=== PATIENT | female | born 1940 | race Caucasian/White ===

== ENCOUNTER 2016-11-07 14:00 | Inpatient (IN) ==
[2016-11-07] MEDS ORDERED: chlorproMAZINE 25 MG TABLET PO PRN (14:51)
[2016-11-07] MEDS ORDERED: diphenhydrAMINE CAP 25 MG CAPSULE PO PRN (14:51)
[2016-11-07] MEDS ORDERED: chlorproMAZINE INJ 50 MG in SODIUM CHLORIDE 0.9% 100 ML IV PRN (14:51)
[2016-11-07] MEDS ORDERED: LOPERAMIDE 2 MG CAPSULE PO PRN ×2 (14:51)
[2016-11-07] MEDS ORDERED: MYLANTA/LIDO VISC 2:1 300 ML BOTTLE SWISH/SWAL PRN (14:51)
[2016-11-07] MEDS ORDERED: BENZTROPINE 2 MG/2 ML AMP IV PRN (14:51)
[2016-11-07] MEDS ORDERED: PROMETHAZINE INJ 25 MG in SODIUM CHLORIDE 0.9% 50 ML IV PRN (14:51)
[2016-11-07] MEDS ORDERED: MAGNESIUM HYDROXIDE SUSP 30 ML UDCUP PO PRN (14:51)
[2016-11-07] MEDS ORDERED: LACTULOSE 20 GM/30 ML UDCUP PO PRN (14:51)
[2016-11-07] MEDS ORDERED: ONDANSETRON 4 MG/2 ML VIAL IV PRN (14:51)
[2016-11-07] MEDS ORDERED: ALPRAZolam 0.25 MG TABLET PO PRN (14:51)
[2016-11-07] MEDS ORDERED: MYLANTA/LIDO VISC 2:1 300 ML BOTTLE SWISH/SPIT PRN (14:51)
[2016-11-07] MEDS ORDERED: chlorproMAZINE INJ 25 MG in SODIUM CHLORIDE 0.9% 100 ML IV PRN (14:51)
[2016-11-07] MEDS ORDERED: traMADol 50 MG TABLET PO PRN (14:51)
[2016-11-07] MEDS ORDERED: TEMAZEPAM 7.5 MG CAPSULE PO PRN (14:51)
[2016-11-07] MEDS ORDERED: guaiFENesin 200 MG/10 ML UDCUP PO PRN (14:51)
[2016-11-07] MEDS ORDERED: ALUMINUM/MAGNES/SIMETH MAX STR 30 ML UDCUP PO PRN (14:51)
[2016-11-07] MEDS ORDERED: ACETAMINOPHEN 325 MG TABLET PO PRN (14:51)
[2016-11-07] MEDS: DEXT 5% NACL 0.45% KCL 20 MEQ 20 MEQ/1,000 ML BAG IV SCH (15:59)
--- NOTE | 2016-11-07 17:11 | Oncology History&Physical ---
History of Present Illness Chief complaint: Non-Hodgkins Lymphoma History of present illness: Ms. Velasquez is a 76 year old female with diffuse large B-cell non-Hodgkin lympoma admitted for Rituxan in the morning. She presented to my office on the day of this admission complaining of increasing left flank pain. She has a large bulky area of documented lymphoma in the left lateral abdomen as well as additional areas of lymphomatous involvement. She had a PET scan done October 17, 2016 that demonstrated activity in the left neck as well as in the chest and the right subcarinal area along with extensive adenopathy throughout the abdomen and the portacaval region, pericaval region and para-aortic region. There was also a large intra- abdominal mass on the left side that was biopsied under ultrasound on September 21, 2016. It is established the diagnosis of diffuse large B-cell lymphoma. Because of her frail condition, it was my intention to treat her with Rituxan and bendamustine and I had planned to start on Rituxan 500 mg IV this week after she had a Mediport catheter placed. Mediport catheter was placed last week. I prescribed allopurinol 300 mg daily and plan to continue it for about a month. The patient has gotten that prescription filled and she started on it last week. I already started her on dexamethasone 20 mg p.o. each week. In addition, she received Prevnar 13 on October 25, 2016. She has a remote history of colon cancer in 1996 for which she was treated at [facility] and I have no details of that treatment. ROS Gen.: Positive for fatigue and weight loss. Negative for change in appetite, fever, chills, night sweats. Eyes: No history of chronic disease, infections or visual loss. ENT: Positive for hearing loss, snoring and tinnitus. No history of chronic infections, epistaxis, chronic sore throat Lungs: No history of asthma, emphysema, hemoptysis, chronic pleurisy or long- term or chronic infections Cardiovascular: Positive for varicose veins. No history of angina, coronary artery disease, congestive heart failure, cardiovascular surgery or DVT/VTE GI: Positive for abdominal mass, abdominal pain in the left flank and left lateral abdomen primarily, bloating and hemorrhoids. No history of upper or lower GI bleeding, melena, dysphagia, odynophagia, liver disease, gallbladder disease or pancreatic disease. : No history of kidney stones, chronic kidney infections or hematuria. Endocrine: Positive abnormal sleep patterns, chronic underweight, recent weight loss. Musculoskeletal: No history of chronic bone or joint pain or focal muscle atrophy or bone or joint deformity. Neurologic: Positive for memory impairment with moderate short-term memory loss. No history of seizures, convulsions or paralysis. Psychiatric: Positive for memory loss but otherwise no history of chronic psychiatric illness or psychiatric medications. Lymphatic: In spite of having extensive adenopathy within the chest and abdomen , there is no history of significant or long-term lymphadenopathy Hematologic: No history of anemia, bleeding disorders or blood dyscrasias or long-term elevation or depression white cell count or petechiae. Skin: No history of chronic skin infections or rashes or significant skin lesions. Family history is positive for diabetes mellitus but negative for lymphoma Social history: She is . Never smoked. Past medical history she has no known allergies. She has had bilateral cataract surgery, hysterectomy and tonsillectomy. Her only other illness was the colon cancer for which she was treated at [facility]. Physical examination: The patient is underweight and thin but in no acute distress. Eyes: Normal lids and conjunctivae. ENT: Her oral mucosa and pharynx are normal. She has no tonsillar masses. The palate and uvula are normal. Neck: Her voice is clear and her trachea is midline. She has no neck masses. The thyroid is normal. Nodes: There is no cervical, supraclavicular or axillary adenopathy. Breasts: No abnormalities by inspection or palpation. Respiratory: Breath sounds are normal without rubs, rales or rhonchi. There is no chest wall tenderness and no chest wall deformities. Cardiovascular: Her heart rhythm is regular without murmur, gallop or rub. There is no jugular venous distention, clubbing, cyanosis or edema. Abdomen: She has a large mass palpable in the left side of the abdomen including apparent splenomegaly but there is a separate mass in the left flank area anteriorly. This is tender. Bowel sounds are normal. I cannot palpate her liver. Musculoskeletal: Gait and station are normal. There is no focal muscle atrophy or bone or joint deformity. Neurologic: She has moderate short-term memory impairment. Cranial nerves II through XII are intact. The no focal neurologic deficits. Psychiatric: She has memory loss with short-term memory impairment primarily. She appears to be relatively oriented but not completely so. The patient's complete blood count on November 07, 2016 includes a hemoglobin of 14.5 with a platelet count of 198,000 and an absolute neutrophil count of 4100. Her comprehensive metabolic profile is entirely normal and her LDH is normal at 152. 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 Unfortunately, bendamustine is not readily available and has to be ordered. I may consider treating the patient with 1 dose of Cytoxan or possibly having her return for bendamustine. I am concerned about tumor lysis syndrome and I will place the patient on allopurinol. It may be appropriate to give Rituxan initially along with steroids and without additional aggressive chemotherapy. Home Medications Medication Instructions Recorded Confirmed Type Calcium (Carb)/Vit D 600-400 1 tablet PO DAILY 04/04/16 11/07/16 History [Caltrate 600 + D] Vitamin E 400 unit PO DAILY 04/04/16 11/07/16 History Multivitamin [One Daily] 1 tablet PO DAILY 09/21/16 11/07/16 History Polyethylene Glycol Powder 17 gram PO DAILY 09/21/16 11/07/16 History [Miralax] Allopurinol [Zyloprim] 300 mg PO DAILY 11/02/16 11/07/16 History Dexamethasone [Dexamethasone Tab] 20 mg PO Q7DAY 11/02/16 11/07/16 History Allergies Allergy/AdvReac Type Severity Reaction Status Date / Time sulfamethoxazole AdvReac Nausea Verified 11/07/16 06:51 [From Bactrim] trimethoprim [From Bactrim] AdvReac Nausea Verified 11/07/16 06:51 Medical,Surgical,& Family Hx - Medical History Neurology: No history of: Seizures HEENT: 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 Young) No history of: Anesthesia Reactions - Surgical History Cardiac Surgeries: Patient Denies: Vascular Access Devices (11/03/16 Sched for Mediport Placement ) HEENT Surgeries: Surgical HX of: Eye Surgery (CATARACT 09/20/14;09/26/14), Tonsilectomy & Adenoidectomy Abdominal Surgeries: Surgical HX of: Abdominal Surgery (Large Bowl Resection Approx 1996), Colonoscopy Reproductive Surgeries: Surgical HX of;: Breast Surgery (BIOPSY KAYLA), Gynecologic Surgery (Anterior Repair ("Uterus tacking surg")), Hysterectomy ( Total) Orthopedic Surgeries: Surgical HX of;: Orthopedic Surgery (Bunionectomy with screw 1st digit Lt Foot 10/08/15) - Social History Smoking Status: Never smoker Frequency of Alcohol Use: None Type of Drug Use: None Exam - Constitutional Vitals: Period Temp Pulse Resp BP Sys/Jin Pulse Ox Last 24 Hr 97.3 F-98.5 F 67-71 18-20 128-128/65-77 95-99 Results - Labs CBC & BMP: 11/08/16 04:00 11/08/16 04:00
[2016-11-07] MEDS ORDERED: POLYETHYLENE GLYCOL POWDER 17 GM PACK PO PRN (20:00)
[2016-11-07] MEDS: DEXAMETHASONE INJ 20 MG in SODIUM CHLORIDE 0.9% 50 ML IV SCH (22:38)
[2016-11-08] MEDS ORDERED: HEPARIN LOCK FLUSH 500 UNIT/5 ML SYRINGE IV ONE (01:56)
[2016-11-08] MEDS: DEXT 5% NACL 0.45% KCL 20 MEQ 20 MEQ/1,000 ML BAG IV SCH ×3 (02:38→17:44)
[2016-11-08 04:44] LABS: Basophils % 0.4 % (0.0-0.8); Eosinophils # 0.1 10*3/uL (0.0-0.87); Eosinophils % 1.8 % (0.00-10.9); Hematocrit 40.3 VOL% (35.7-47.0); Hemoglobin 13.5 GM/DL (12.0-16.0); Immature Granulocytes % 0.6 %; Immature Granulocytes Absolute 0.03 #; Lymphocytes # 0.4 10*3/uL (1.4-4.0); Mean Corpuscular HGB Conc 33.5 GM/DL (32-36); Mean Corpuscular Hemoglobin 30 PG (27-34); Mean Corpuscular Volume 89.8 FL (87-102); Mean Platelet Volume 10.1 FL (9.6-12.0); Monocytes # 0.1 10*3/uL (0.11-0.8); Monocytes % 1.8 % (1.7-12.7); Neutrophils # 4.5 10*3/uL (1.4-7.4); Neutrophils % 87.4 % (38.7-73.9); Platelet Count 181 T/CUMM (130-400); Red Blood Count 4.49 MC/CUMM (3.8-5.5); White Blood Count 5.1 T/CUMM (4-12)
[2016-11-08 05:22] LABS: Alanine Aminotransferase 16 U/L (13-56); Albumin 3.3 G/DL (3.4-5.0); Alkaline Phosphatase 58 U/L (45-117); Aspartate Amino Transferase 16 U/L (0-37); Bilirubin,Total < 0.39 MG/DL (0.2-1.0); Blood Urea Nitrogen 13 MG/DL (7-18); Calcium 8.7 MG/DL (8.5-10.1); Glucose 159 MG/DL (74-106); Magnesium 2.4 MG/DL (1.8-2.4); Osmolality,Calculated 281.4 MOS/KG (273-304); Potassium 4.5 MMOL/L (3.5-5.1); Sodium 140 MMOL/L (136-145); Total Protein 6.3 G/DL (6.4-8.3)
--- NOTE | 2016-11-08 08:09 | Oncology Progress Note ---
Oncology Subjective PN Interval history: We are proceeding with Rituxan today as part of the treatment for this patient' s diffuse large cell non-Hodgkin's lymphoma. I will consider adding bendamustine as an outpatient. I have explained to Ms. Velasquez about this situation. She has short-term memory loss and tells me that she is not likely to remember this. I will be talking to her about it at some point before discharge. My plan is to discharge her tomorrow if all goes well with the Rituxan today. I am probably going to continue Rituxan intravenously in her case. I do not think she can tolerate the large amount of subcu injection. On physical examination she is thin to the point of being cachectic. She is very talkative to the point that she interrupts my explanations. Cranial nerves II through XII are intact. She has no focal neurologic deficits. Her respirations are unlabored. She is eating breakfast currently and does not have any nausea or vomiting. She has been having abdominal pain but she does not complain of it presently. I am actually hoping for an excellent response from Rituxan as a single agent but this is a diffuse large B-cell lymphoma and it is probably going to require more treatment than simply Rituxan. We will be monitoring for toxicity which can be substantial. She is on allopurinol to prevent hyperuricemia. Exam - Constitutional Vitals: Period Temp Pulse Resp BP Sys/Jin Pulse Ox Last 24 Hr 97.3 F-98.5 F 66-71 18-20 110-140/58-77 93-99 Results - Labs CBC & BMP: 11/08/16 04:00 11/08/16 04:00
[2016-11-08] MEDS ORDERED: MULTIVITAMIN (CENTRUM) TABLET PO SCH (09:00)
[2016-11-08] MEDS ORDERED: VITAMIN E 200 UNIT CAPSULE PO SCH (09:00)
[2016-11-08] MEDS ORDERED: CALCIUM (CARBONATE)/VITAMIN D 600 MG-400 UNIT TABLET PO SCH (09:00)
[2016-11-08] MEDS: ALLOPURINOL 300 MG TABLET PO SCH (09:26)
[2016-11-08] MEDS: DEXAMETHASONE INJ 20 MG in SODIUM CHLORIDE 0.9% 50 ML IV SCH (09:26)
[2016-11-09] MEDS: DEXT 5% NACL 0.45% KCL 20 MEQ 20 MEQ/1,000 ML BAG IV SCH (03:49)
--- NOTE | 2016-11-09 07:46 | Oncology Progress Note ---
Oncology Subjective PN Interval history: Abdominal pain secondary to non-Hodgkin's lymphoma: Diffuse large cell non-Hodgkin's lymphoma, CD20 positive, stage IV: Senile dementia: Ms. Velasquez was admitted on November 07, 2016 with abdominal pain and a palpable mass in the left lateral abdomen that had previously been biopsied and proven to be CD20 positive diffuse large cell non-Hodgkin's lymphoma. She had recently had a Mediport catheter placed and we were anticipating starting treatment so when she presented with the abdominal pain and palpable mass we proceeded with the chemotherapy which she received Rituxan yesterday and apparently tolerated it well. She received Rituxan 500 mg IV on November 08 along with dexamethasone 20 mg IV. She actually was started on dexamethasone on November 07 dose of 20 mg daily and she will get another dose today. Her abdominal pain has resolved overnight and interestingly, I cannot palpate the left lateral abdominal mass this morning. This would be a very unusual and dramatic response to treatment and I have told this to her . I have also told this to her but she has enough senile dementia that I am not sure she can remember. I am considering treating this patient with bendamustine cannot really be given inpatient at this hospital due to the expense. However, the other reason that I am not giving it yet is both because of concerns for tumor lysis syndrome. Therefore I am currently treating her with dexamethasone 20 mg p.o. weekly and this was her first dose of Rituxan. She will be discharged today to have a CBC, CMP, LDH and uric acid checked in 1 week. She will return for an office visit in 2 weeks with the same lab work. Exam - Constitutional Vitals: Period Temp Pulse Resp BP Sys/Jin Pulse Ox Last 24 Hr 97.4 F-98.7 F 58-82 18-20 109-143/57-87 94-97 Results - Labs CBC & BMP: 11/08/16 04:00 11/08/16 04:00
[2016-11-09 08:50] VITALS: BP 138/59
--- NOTE | 2016-11-09 09:06 | Discharge Summary ---
Hospital Course - Hospital Course Hospital Course: Diagnoses: Abdominal pain secondary to non-Hodgkin's lymphoma: Diffuse large cell non-Hodgkin's lymphoma, CD20 positive, stage IV: Senile dementia: Ms. Velasquez was admitted on November 07, 2016 with abdominal pain and a palpable mass in the left lateral abdomen that had previously been biopsied and proven to be CD20 positive diffuse large cell non-Hodgkin's lymphoma. She had recently had a Mediport catheter placed and we were anticipating starting treatment so when she presented with the abdominal pain and palpable mass we proceeded with the chemotherapy which she received Rituxan yesterday and apparently tolerated it well. She received Rituxan 500 mg IV on November 08 along with dexamethasone 20 mg IV. She actually was started on dexamethasone on November 07 dose of 20 mg daily and she will get another dose today. Her abdominal pain has resolved overnight and interestingly, I cannot palpate the left lateral abdominal mass this morning. This would be a very unusual and dramatic response to treatment and I have told this to her . I have also told this to her but she has enough senile dementia that I am not sure she can remember. I am considering treating this patient with bendamustine cannot really be given inpatient at this hospital due to the expense. However, the other reason that I am not giving it yet is both because of concerns for tumor lysis syndrome. Therefore I am currently treating her with dexamethasone 20 mg p.o. weekly and this was her first dose of Rituxan. She will be discharged today to have a CBC, CMP, LDH and uric acid checked in 1 week. She will return for an office visit in 2 weeks with the same lab work. - Time spent with patient Time with patient DS: Greater than 30 minutes Discharge Plan - Discharge Data Disposition: Disch To Home/Self Care Condition at Discharge: Guarded Discharge Diet: advance to your usual diet Activity: resume usual activities as tolerated Hygiene: no restrictions Weight Bearing at Discharge: weight bear as tolerated Driving: other Contact your physician if you experience:: fever over 101, Difficulty voiding, Redness or swelling, Nausea/Vomiting, Shortness of breath, Bleeding, pain uncontrolled by pain medications - Discharge Medications New Acetaminophen Tab [Tylenol Tab] 650 mg PO Q4H PRN tablet PRN Reason: Fever Continue Polyethylene Glycol Powder [Miralax] 17 gram PO DAILY Dexamethasone [Dexamethasone Tab] 20 mg PO Q7DAY Calcium (Carb)/Vit D 600-400 [Caltrate 600 + D] 1 tablet PO DAILY Allopurinol [Zyloprim] 300 mg PO DAILY Discontinued Vitamin E 400 unit PO DAILY Multivitamin [One Daily] 1 tablet PO DAILY - Follow Up or Referral - Forms/Instructions Additional Discharge Instructions: I am writing the patient a prescription for [place] 5 with 60 tablets and no refills to take 1 every 4 hours as needed for severe pain. Lab work at my office next week to include CBC, CMP, LDH and uric acid. Appointment to see me in 2 weeks with CBC, CMP, LDH and uric acid Exam - Constitutional Vitals: Period Temp Pulse Resp BP Sys/Jin Pulse Ox Last 24 Hr 97.4 F-98.7 F 58-82 18-20 109-143/57-65 94-97 DS: Provider Date of admission: 11/07/16 14:14 Primary care physician: . No PCP Attending physician on admission: Brad Young MD Consults: 11/07/16 15:40 Consult to Dietitian [CONS] Routine Reason for Dietitian: Diet Recommendations Discharging clinician: Brad Young MD
[2016-11-09] MEDS: ALLOPURINOL 300 MG TABLET PO SCH (09:23)
[2016-11-09] MEDS: DEXAMETHASONE INJ 20 MG in SODIUM CHLORIDE 0.9% 50 ML IV SCH (09:26)
[2016-11-09] MEDS ORDERED: HEPARIN LOCK FLUSH 500 UNIT/5 ML SYRINGE IV ONE (10:39)
== END 2016-11-09 11:45 | disposition home or self-care (01) | DRG 841 ==
LOC: N.4E 14:14
PROVIDERS: ADMIT Specialist; ATTEND Specialist